=== PATIENT | female | born 1970 | race Caucasian/White ===

== ENCOUNTER 2019-03-16 18:25 | Emergency (ER) | payer OTHER ==
[~2019-03-16] VITALS: Ht 160 cm; Wt 65.8 kg
--- NOTE | 2019-03-16 18:26 | NUR ---
BERTA ZAPIEN ALS TO ER BED 04
[2019-03-16 18:27] VITALS: BP 104/41
--- NOTE | 2019-03-16 19:36 | NUR ---
Dr. Mae examining patient.
--- NOTE | 2019-03-16 19:47 | NUR ---
PATIENT ALERT AND ORIENTED, BREATHING EVEN AND UNLABORED, WILL CONTINUE TO MONITOR.
[2019-03-16] MEDS ORDERED: levETIRAcetam 500 MG TAB PO ONE (19:55)
[2019-03-16] MEDS ORDERED: NACL 0.9% 1,000 ML IV ONE (19:55)
[2019-03-16 21:12] LABS: BASOPHILS # (AUTO) 0.1 K/uL (0.00-0.22); BASOPHILS % (AUTO) 0.8 % (0.0-2.0); EOSINOPHILS % (AUTO) 0.6 % (0.0-4.0); HEMATOCRIT 37.3 % (36-48); HEMOGLOBIN 12.3 g/dL (12.0-16.0); LYMPHOCYTES # (AUTO) 1.5 K/uL (2.5-16.5); LYMPHOCYTES % (AUTO) 22.2 % (20.5-51.1); MEAN CORPUSCULAR HEMOGLOBIN 33 pg (27-31); MEAN CORPUSCULAR HGB CONC 33 g/dL (33-37); MEAN CORPUSCULAR VOLUME 100.9 fL (80-94); MONOCYTES # (AUTO) 0.2 K/uL (0.8-1.0); MONOCYTES % (AUTO) 2.6 % (1.7-9.3); NEUTROPHILS % (AUTO) 73.8 % (42.2-75.2); PLATELET COUNT (AUTO) 223 K/uL (140-450); RED CELL DISTRIBUTION WIDTH 16.6 % (11.6-13.7); WHITE BLOOD COUNT (AUTO) 6.8 K/uL (4.8-10.8)
--- NOTE | 2019-03-16 22:29 | NUR ---
PATIENT RESTING WITH EYES CLOSED, BREATHING EVEN AND UNLABORED. AT BEDSIDE.
--- NOTE | 2019-03-16 23:53 | NUR ---
PATIENT ALERT AND ORIENTED, BREATHING EVEN AND UNLABORED
[2019-03-17 00:19] LABS: ANION GAP 15.3 (8-16); CARBON DIOXIDE 26.7 mmol/L (21-32); CREATININE 0.8 mg/dL (0.6-1.3)
[2019-03-17 00:27] LABS: TOTAL BILIRUBIN 0.6 mg/dL (0.0-1.0)
[2019-03-17 00:28] LABS: ALBUMIN 3.6 g/dL (3.4-5.0)
--- NOTE | 2019-03-17 00:50 | NUR ---
Patient discharged with v/s stable. Written and verbal after care instructions ABOUT SEIZURES given and explained. Patient verbalized understanding. Ambulatory with steady gait. All questions addressed prior to discharge. Advised to follow up with PMD
[2019-03-17 00:54] VITALS: BP 129/70
--- NOTE | 2019-03-17 01:00 | NUR ---
Walter hoang in EDM - 03/17/19 at 0100 by MEDDANIKA Patient discharged with v/s stable. Written and verbal after care instructions ABOUT SEIZURES given and explained. Patient verbalized understanding. Ambulatory with steady gait. All questions addressed prior to discharge. Advised to follow up with PMD.
== END 2019-03-17 00:50 | disposition home or self-care (01) ==
LOC: MED 18:25
DX: R56.9 Unspecified convulsions (principal); R42 Dizziness and giddiness; R53.1 Weakness; R50.9 Fever, unspecified; Z88.0 Allergy status to penicillin
CPT/HCPCS: 36415; 80053; 85025; 96360; 99283; J7030